=== PATIENT | male | born 2000 | race Hispanic/Latino ===

== ENCOUNTER 2023-11-15 12:48 | Emergency (ER) | payer OTHER, SELFPAY ==
[2023-11-15 13:17] VITALS: BP 149/72
[2023-11-15 13:39] LABS: % Basophils 0.5 % (0-2); % Eosinophils 0.7 % (0-6); % Immature Granulocytes 0.5 % (0-0.5); % Lymphocytes 25.4 % (20.5-51.1); % Monocytes 6.5 % (1.7-9.3); % Neutrophils 66.4 % (42.2-75.2); Absolute Eosinophils 0.1 10^3/uL (0-0.7); Absolute Lymphocytes 2.2 10^3/uL (1.2-3.4); Absolute Monocytes 0.6 10^3/uL (0.1-0.6); Absolute Neutrophils 5.7 10^3/uL (1.4-6.5); Hematocrit 42.6 % (39.0-52.0); Hemoglobin 14.9 g/dL (13.0-18.0); Mean Corpuscular Hgb 27.6 pg (27.0-31.0); Mean Platelet Volume 9.5 fL (7.4-10.4); Nucleated Red Blood Cells % 0 % (-); Platelet Count 255 10^3/uL (130-400); Red Blood Cell Count 5.39 10^6/uL (4.70-6.10); Red Cell Dist. Width 12.7 % (11.5-14.5); White Blood Cell Count 8.6 10^3/uL (4.8-10.8)
[2023-11-15 13:57] LABS: ALT (SGPT) 31 U/L (0-50); AST (SGOT) 32 U/L (17-59); Albumin 4.5 g/dl (3.5-5.0); Alkaline Phosphatase 66 U/L (38-126); Blood Urea Nitrogen 18 mg/dl (9-20); Calcium 9.3 mg/dl (8.4-10.2); Carbon Dioxide 28 mmol/L (22-30); Chloride 105 mmol/L (98-107); Glucose 100 mg/dl (70-99); Lipase 42 U/L (23-300); Potassium 4.1 mmol/L (3.5-5.1); Sodium 140 mmol/L (135-145); eGFR > 60.00
--- NOTE | 2023-11-15 14:26 | ED.GENMED ---
History of Present Illness
General
Chief Complaint: Abdominal Symptoms
Time Seen by Provider: 11/15/23 14:16
Travel History
Have you had any contact with someone who has COVID-19?: No
Do you have any symptoms of coronavirus? Fever > 100 degrees, chills, cough, shortness of breath, sore throat, loss of taste or smell, muscle aches, or headache?: No
History of Present Illness
History of Present Illness:
Patient is a 23-year-old male with past medical history of seizure disorder and autism here today for evaluation of approximately 3 to 4 days of intermittent episodes of epigastric abdominal discomfort. He also endorses mild discomfort along the
bilateral upper quadrants and at times the pain radiates into his chest. He has noted associated mild shortness of breath with the chest discomfort. He does endorse mild abdominal pain currently but denies chest pain. No fevers. No
vomiting/diarrhea. He has noted a mild amount of constipation. No black/bloody stools. No prior abdominal surgeries. No excessive ETOH use. He does report being lactose intolerant and has noted mild worsening of symptoms with lactose intake.
Patient denies recent surgeries or immobilizations. No active cancer. No personal history of DVT/PE. No unilateral lower extremity pain or swelling. No hemoptysis. No estrogen use.
Review of Systems
Review of Systems
All Other Systems: ROS reviewed and negative except as documented in HPI and ROS
Phy Exam
Physical Exam
Physical Exam:
GENERAL: Alert , in no apparent distress
EYE: pupils equal and reactive
NECK: Supple, no significant adenopathy.
ENT: o/p clr, mmm.
CARDIAC: Regular rate and rhythm .
LUNGS: Clear breath sounds bilaterally, no acute respiratory distress, no wheezes/rales/rhonchi
ABDOMEN: Soft, mild epigastric and bilateral upper quadrant tenderness to palpation, no r/g, no cvat
NEUROLOGICAL: Alert and oriented, no focal neuro deficits
SKIN: Warm and dry, skin intact.
MUSCULOSKELETAL: No edema, well perfused.
PSYCH: Normal and appropriate interaction.
Course
Orders/Labs/Results
Orders:
Orders
11/15/23 13:32
Complete Blood Count/With Diff Urgent
Comprehensive Metabolic Panel Urgent
Lipase Urgent
Monotest Urgent
Comment: MONOTEST ADDED ON BY FLOOR 4;43pm 11-15-23
11/15/23 14:24
0.9% Sodium Chloride 1000 ml [Nss] 1,000 ml IV BOLUS
Famotidine [Pepcid] 20 mg IV NOW STA
Mag Hydrox/Al Hydrox/Simeth [Maalox] 30 ml PO NOW STA
US Abdomen Complete/Upper Urgent
Comment:
Reason For Exam: ruq epigastric, abd pain
11/15/23 16:43
Add On- LAB Urgent
Tests Added?: monotest
Abnormal Lab Results
11/15/23
13:32
MCV 79.0 L fL
(80.0-94.0)
Glucose 100 H mg/dl
(70-99)
11/15/23 13:32
11/15/23 13:32
Vital Signs
Initial and Last Documented VS:
Initial Vital Signs
Temp Pulse Resp BP Pulse Ox
98.0 F 73 16 149/72 98
11/15/23 13:17 11/15/23 13:17 11/15/23 13:17 11/15/23 13:17 11/15/23 13:17
Last Documented Vital Signs
Temp Pulse Resp BP Pulse Ox
98.0 F 73 16 149/72 98
11/15/23 13:17 11/15/23 13:17 11/15/23 13:17 11/15/23 13:17 11/15/23 13:17
MDM/Problems Addressed
Differential Diagnosis Includes:
Patient is a 23-year-old male with past medical history of seizure disorder and autism here today for evaluation of approximately 3 to 4 days of intermittent episodes of epigastric abdominal discomfort. Overall, patient appears very well. Vitals
grossly within normal limits aside from a mildly elevated blood pressure. Physical examination described above. Will insert IV and provide IV fluids in addition to Pepcid and Maalox. Will obtain screening labs. Will obtain right upper quadrant
ultrasound. NPO.
11/15/2023 17:04: Screening labs grossly within normal limits without significant acute abnormalities. Right upper quadrant ultrasound reveals moderate splenomegaly with a splenic length of 14.8 cm in addition to diffuse fatty infiltration of the
liver. Patient reassessed after medication administration. He reports significant improvement in symptoms overall. Pain has resolved. Symptoms/findings at this time consistent with dyspepsia/GERD. The patient has no persistent pain. No fevers
or vomiting. He is able to tolerate p.o. At this time, no emergent findings identified. Patient appears suitable and stable for outpatient therapy with recommendations for close follow-up with his doctor as well as GI. Will provide prescriptions
for Pepcid and Maalox and recommend supportive measures and close follow-up. Patient provided with strict ER precautions for worsening symptoms. All questions answered. Stable for discharge.
*Critical Care Note
Total Time (30-74mins, 75-104mins- exclusive of procedures): Not Applicable
ED Attending Note
-
Portions of this chart may have been created with voice recognition software.� Occasional wrong word or��sound alike� substitutions may have occurred due to the inherent limitations of voice recognition software.
Discharge Plan
Departure
Patient Disposition: Home (Routine Discharge)
Date of Disposition: 11/15/23
Time of Disposition: 16:49
Patient with high blood pressure during this ER visit?: Yes
Condition: Good
Covid-19: Not Applicable
Discharge Problem:
Abdominal pain, Splenomegaly, Fatty liver
Instructions: Abdominal Pain
Prescriptions:
New
famotidine [Pepcid] 20 mg tablet
20 mg PO BID 14 Days Qty: 28 0RF
alum-mag hydroxide-simeth 200-200-20 mg/5 mL suspension
10 - 20 ml PO Q6H PRN (Reason: indigestion) 7 Days Qty: 560 0RF
No Action
diphenhydramine HCl [Benadryl] 25 MG capsule
25 mg PO HS
risperidone 1 MG tablet
1 mg PO BID
Referrals:
Antony Castellon MD [Active] - Follow up in 1 week
Rajesh Cortes MD [Family Provider] -
Activity Restrictions/Additional Instructions:
You were seen today for evaluation of abdominal pain.
Your blood work reveals no significant findings.
Your ultrasound reveals:
Moderate splenomegaly with a splenic length of 14.8 cm
Diffuse fatty infiltration of the liver.
We provided you with medication with improvement in symptoms overall.
Begin taking the prescribed Pepcid (famotidine) and Maalox as directed as needed.
Follow-up with your family doctor within 3 to 5 days for close reevaluation.
We also recommend following up with a [place] (GI specialist) within 1 week.
Return for any new, worsening, or concerning symptoms
Interventions
Interventions:
*Risk Screen - Suicide Last Done: 11/15/23 15:21
*General Assessment Last Done: 11/15/23 14:17
*Neglect/Abuse Screening Last Done: 11/15/23 14:52
ED- Fall Risk Assessment Last Done: 11/15/23 15:21
*ED COVID-19 Vaccine History Last Done: 11/15/23 15:20
*Nursing Disposition Last Done: 11/15/23 17:05
DG-Trxkke-Qydhjomzbs Assessment Last Done: 11/15/23 14:17
Discharge Date and Time
Discharge Date/Time: 11/15/23 17:06
Print Language: TANZANIAN
[2023-11-15] MEDS: NSS 1000 IV (14:58)
[2023-11-15] MEDS: PEPCID 20 MG IV (14:59)
[2023-11-15] MEDS: MAALOX 30 ML PO (14:59)
[2023-11-15 17:30] LABS: Monotest Negative (Negative)
== END 2023-11-15 17:06 | disposition home or self-care (01) ==
LOC: EMR 12:48
PROVIDERS: Emergency Medicine; EMERGENCY PHYSICIAN Emergency Medicine; FAMILY PHYSICIAN Pediatrics
DX: R10.13 Epigastric pain (principal); R16.1 Splenomegaly, not elsewhere classified; K76.0 Fatty (change of) liver, not elsewhere classified; R03.0 Elevated blood-pressure reading, without diagnosis of hypertension; G40.909 Epilepsy, unspecified, not intractable, without status epilepticus; F84.0 Autistic disorder
CPT/HCPCS: 99284; 96374; 96361; 76700; 80053; 83690; 85025; 86308